=== PATIENT | female | born 1970 | race Caucasian/White ===

== ENCOUNTER 2017-08-02 22:29 | Emergency (ER) | payer OTHER ==
[~2017-08-02] VITALS: Ht 162.5 cm; Wt 104.3 kg
[~2017-08-02 22:29] MED LIST: AUGMENTIN 875 M1 TAB PO; CLARITIN10 MG PO; MEDROL DOSEPAK4 MG PO; TESSALON PERLE200 MG PO; ZITHROMAX Z PA250 MG PO
[2017-08-02] MEDS ORDERED: OMNICEF300 MG PO (23:52)
[2017-08-02] MEDS ORDERED: PREDNISONE10 MG PO (23:52)
[2017-08-02] MEDS ORDERED: TAMIFLU45 MG PO (23:52)
== END 2017-08-03 00:22 | disposition home or self-care (01) ==
LOC: ED 22:29
DX: J09.X2 Influenza due to identified novel influenza A virus with other respiratory manifestations (principal); J45.909 Unspecified asthma, uncomplicated; H65.93 Unspecified nonsuppurative otitis media, bilateral; F17.200 Nicotine dependence, unspecified, uncomplicated; Z91.040 Latex allergy status

== ENCOUNTER → 2024-05-20 | Outpatient (CLI) | payer OTHER ==
[~2024-05-20] MED LIST changes: +OMNICEF300 MG PO; +PREDNISONE10 MG PO; +TAMIFLU45 MG PO
[2024-05-20 15:09] LABS: BASO % 0.3 % (0.0-1.0); EOS # 0.2 10*3/uL (0.0-0.4); EOS % 2.1 % (1.0-4.0); HEMATOCRIT 44.4 % (37.0-47.0); MEAN CELL VOLUME 87.7 fl (81.0-99.0); MEAN CORPUSCULAR HGB CONC 34.2 g/dl (33.0-37.0); MEAN PLATELET VOLUME 11.3 fl (9.6-12.3); MONO # 0.5 10*3/uL (0.1-1.0); MONO % 6.1 % (3.0-9.0); NEUT % 57.9 % (47.0-73.0); PLATELET COUNT AUTOMATED 186 10*3/uL (130-400); RED BLOOD COUNT 5.06 10*6/uL (4.10-5.10); RED CELL DISTRI WIDTH 12.7 % (0-14.5); WHITE BLOOD COUNT 8.7 10*3/uL (4.8-10.8)
== END | disposition home or self-care (01) ==
LOC: LAB 14:45
PROVIDERS: ATTEND Internal Medicine
DX: I10 Essential (primary) hypertension (principal); E03.9 Hypothyroidism, unspecified; E53.9 Vitamin B deficiency, unspecified; R53.83 Other fatigue; F17.210 Nicotine dependence, cigarettes, uncomplicated

== ENCOUNTER 2025-03-02 10:13 | Emergency (ER) | payer BC ==
[~2025-03-02] VITALS: Wt 97.5 kg
[2025-03-02] MEDS ORDERED: LOSARTAN-HCTZ1 EACH PO (10:21)
[2025-03-02] MEDS ORDERED: 'CLONIDINE0.1 MG PO (10:21)
[2025-03-02] MEDS ORDERED: VISTARIL25 MG PO (10:22)
[2025-03-02] MEDS ORDERED: Synthroid,Levo50 MCG PO (10:22)
[2025-03-02 11:03] LABS: BASO # 0.0 10*3/uL (0.0-0.1); BASO % 0.3 % (0.0-1.0); EOS # 0.1 10*3/uL (0.0-0.4); EOS % 1.4 % (1.0-4.0); MEAN CELL VOLUME 88.0 fl (81.0-99.0); MEAN CORPUSCULAR HGB 29.3 pg (27.0-31.0); MEAN PLATELET VOLUME 10.4 fl (9.6-12.3); MONO # 0.4 10*3/uL (0.1-1.0); MONO % 5.0 % (3.0-9.0); NEUT # 5.9 10*3/uL (2.3-7.9); NEUT % 67.7 % (47.0-73.0); NUCLEATED RED BLOOD CELL 0.0 % (0.0-0.0); NUCLEATED RED BLOOD CELL 0.0 10*3/uL (0.0-0.0); PLATELET COUNT AUTOMATED 177 10*3/uL (130-400); RED CELL DISTRI WIDTH 13.2 % (0-14.5)
[2025-03-02] MEDS ORDERED: MG-AL HYDROXIDE/SIMETICONE 30 ML UDC PO ONE (11:20)
[2025-03-02 11:25] LABS: BUN 12 mg/dl (9-23); SGPT/ALT 11 U/L (5-49)
[2025-03-02 11:29] LABS: BILIRUBIN Negative (Negative); BLOOD 2+ (Negative); CLARITY Clear (Clear); COLOR Yellow (Yellow); KETONE Trace (Negative); LEUKO ESTERASE Negative (Negative); NITRITE Negative (Negative); PH 5.5 (4.5-8.0); SPECIFIC GRAVITY >= 1.030 (1.001-1.030); UROBILINOGEN 0.2 E.U./dl (0.0-1.0)
[2025-03-02 11:51] LABS: BACTERIA 2+; RBC 21-30 rbc/hpf (0-2)
[2025-03-02] MEDS ORDERED: OMEPRAZOLE40 MG PO (13:36)
== END 2025-03-02 13:44 | disposition home or self-care (01) ==
LOC: ED 10:13
PROVIDERS: Emergency Medicine
DX: K29.70 Gastritis, unspecified, without bleeding (principal); F41.9 Anxiety disorder, unspecified; F32.A Depression, unspecified; Z91.040 Latex allergy status